=== PATIENT | male | born 1965 | race Caucasian/White ===

== ENCOUNTER 2016-10-27 21:36 | Emergency (ER) | payer BC ==
[2016-10-27] MEDS ORDERED: ASPIRIN 81 MG (BABY) CHEWABLE TABLET PO ONE (21:46)
[2016-10-27] MEDS ORDERED: NORMAL SALINE 10 ML SYRINGE FLUSH IVP PRN (21:46)
[2016-10-27] MEDS ORDERED: Sodium Chloride 0.9% 1,000 ML PRIMARY IV ONE (21:46)
[2016-10-27] MEDS: NITROGLYCERIN 0.4 MG SL TAB (BOTTLE OF 3) SL PRN ×3 (21:50→22:19)
[2016-10-27 22:15] LABS: CREATINE KINASE MB 2.07 NG/ML (0.00-5.00)
[2016-10-27 22:17] VITALS: TEMP 96.6
[2016-10-27 22:21] LABS: BASOPHILS # (AUTO) 0.11 10*3/UL; BASOPHILS % (AUTO) 1.2 % (0-1); EOSINOPHILS # (AUTO) 0.32 10*3/UL; EOSINOPHILS % (AUTO) 3.5 % (0-8); HEMATOCRIT 46.6 % (42.0-52.0); MEAN CORPUSCULAR HEMOGLOBIN 28.7 PG (27-31); MEAN CORPUSCULAR HGB CONC 34.3 g/dL (33-37); MEAN CORPUSCULAR VOLUME 83.5 FL (80-90); MONOCYTES # (AUTO) 0.72 10*3/UL (0.3-0.8); MONOCYTES % (AUTO) 7.8 % (5-15); NEUTROPHILS # (AUTO) 4.79 10*3/UL; NEUTROPHILS % (AUTO) 51.7 % (50-80); RED BLOOD COUNT 5.58 10^6/uL (4.70-6.10)
[2016-10-27 22:23] LABS: PLATELET MORPHOLOGY COMMENT NORMAL MORPHOLOGY (NORM); RBC MORPHOLOGY COMMENT NORMAL MORPHOLOGY (NORM); WBC MORPHOLOGY COMMENT NORMAL MORPHOLOGY (NORM)
[2016-10-27 22:26] LABS: TROPONIN I < 0.012 ng/mL (< 0.040)
[2016-10-27 22:31] LABS: BLOOD UREA NITROGEN 15 mg/dL (7-22); BUN/CREATININE RATIO 16.66 (6-20); CALCIUM 8.7 mg/dL (8.7-10.7); EST GLOMERULAR FILTRATION > 60 (>60 ml/min/1.73m(2)); SERUM ALBUMIN 4.1 g/dL (3.5-4.8)
[2016-10-27] MEDS ORDERED: MORPHINE SULFATE 4 MG/1 ML IVP ONE (22:33)
[2016-10-27] MEDS ORDERED: KETOROLAC 30 MG/1 ML VIAL IVP ONE (23:18)
[2016-10-27 23:30] VITALS: RESP 12
--- NOTE | 2016-10-28 06:16 | PDOC ---
Chest Pain HPI - General Chief Complaint: Chest Pain Stated Complaint: LEFT SIDED CHEST PAIN STARTED 2 HOURS AGO Date Seen by Provider: 10/27/16 Time Seen by Provider: 21:35 Source: Patient, Spouse Exam Limitations: POSITIVE: No limitations Treatment Prior to Arrival: REPORTS: None Nurse's Notes Reviewed & Considered: Yes - History of Present Illness Initial Comments: The patient is a 51 year old male. 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 He states he's never had any similar problems. He states that his pain is "sharp" and exacerbated/precipitated by deep inspiration and portion of torso. Patient has a history of hypertension for which he takes a medication. He has no known cardiopulmonary problems. He takes one baby aspirin daily. No dyspnea. No diaphoresis. No radiation of discomfort. Body Location Affected: REPORTS: Chest Timing: REPORTS: Abrupt Duration: 1-3 hours Severity: Moderate Persistent/Worse since (date): 10/27/16 Persistent/Worse since (time): 18:00 Context: REPORTS: Activity (Walking) Quality: REPORTS: "Pain", Sharpness, Stabbing Radiation: REPORTS: None Associated Symptoms: REPORTS: Hurts to Breathe. DENIES: Nausea, Vomiting, Diaphoresis, Shortness of Breath, Palpitations, Productive Cough (blood), Productive Cough (sputum), Weakness, Dizziness Modifying Factors: improves with: Movement Similar Symptoms Previously: No Recently seen/treated/hospitalized: No Any Prior Injuries Related to Current Complaint?: No - Patient Home Medications Home Medications: Home Medications Aspirin [Aspir 81] 81 mg PO PRN 10/27/16 - Patient Allergies Allergies/Adverse Reactions: Allergies Allergy/AdvReac Type Severity Reaction Status Date / Time No Known Allergies Allergy Unverified 10/27/16 21:53 Past Medical History - heen HEENT History: Denies History Cardiovascular History: Denies History Respiratory History: Denies History Gastrointestinal History: Denies History Genitourinary History: Denies History Endocrine History: Denies History Musculoskeletal History: Denies History Neurological History: Denies History Blood Disorders: Denies History Psychiatric History: Denies History Male Reproductive History: Denies History Cancer History: Denies History In Past Year Been Physically Harmed or Verbally Threatened: No History of MDRO: No Tobacco Use: Current Every Day Smoker Alcohol Use: Occasionally Substance Use Type: None Previous Surgical History: Yes Type / Date of Surgery: BACK SURGERY Significant Family History: No pertinent family hx Past Medical History Reviewed: Reviewed - No Changes ROS - Limitations ROS Limitations: No Limitations Constitution: REPORTS: Denies Symptoms Cardiovascular: REPORTS: Chest Pain Respiratory: REPORTS: Hurts To Breathe Neurological: REPORTS: Denies Neuro Symptoms Gastrointestinal: REPORTS: Denies GI Symptoms Endocrine: REPORTS: Denies Symptoms Musculoskeletal: REPORTS: Denies MS Symptoms Genitourinary: REPORTS: Denies Symptoms Eyes: REPORTS: Denies Symptoms ENT: REPORTS: Denies Symptoms Skin: REPORTS: Denies Skin Symptoms Lympathic: REPORTS: Denies Lympathic Symptoms Immunologic: POSITIVE: Denies Symptoms Psychiatric: POSITIVE: Denies Psych Symptoms Chest Pain PE - General Appearance General Appearance: REPORTS: Alert, Cooperative, No Acute Distress, No Evidence of Trauma - HEENT HEENT: POSITIVE: Head Inspection Nml, Eyes Inspection Nml, Ears Inspection Nml, Nose Inspection Nml, Oral/Dental Inspect. Nml, Pharynx Inspect. Nml, PERRL, EOMI - Neck Neck: REPORTS: Normal Inspection, No Carotid Bruit - Respiratory Respiratory: REPORTS: No Respiratory Distress, Breath Sounds Normal, Chest Non- Tender - Cardiovascular Cardiovascular: REPORTS: Regular Rate and Rhythm, Heart Sounds Normal, Equal Pulses, Strong Pulses, No Murmur, No Gallop, No Friction Rub, No JVD Peripheral Pulses: Radial (R): 2+, Radial (L): 2+ - Abdomen Abdomen: Soft: (All Quadrants), Normal Bowel Sounds: (All Quadrants), Denies Tenderness: (All Quadrants), No Splenomegaly: (All Quadrants), No Hepatomegaly: (All Quadrants), No Guarding: (All Quadrants), No Rebound: (All Quadrants), No Palpable Pulse: (All Quadrants), No Palpabale Mass: (All Quadrants), No Distention: (All Quadrants), No Rigidity: (All Quadrants) - Skin Skin: REPORTS: Intact, Normal For Race, Warm, Dry, No Rash - Extremities Extremity: Non-Tender: (All Extremities), Normal ROM: (All Extremities), Normal Inspection: (All Extremities) - Neurological / Psychological Neurological: 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, 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 As Tested, Motor Normal, Sensation Normal, 5, 6 Images - Complete Complete: 1 - Area of described discomfort Chest Pain Progress - Results Reviewed by me Xrays/CTs/US Reviewed by me: Yes Discussed with Radiologist: No Radiology Findings: Chest x-ray normal by my interpretation; radiologist interpretation pending Lab Results Reviewed: Yes Lab Results:: Laboratory Results 10/27/16 Range/Units 21:53 WBC 9.26 (4.8-10.8) 10^3/uL RBC 5.58 (4.70-6.10) 10^6/uL Hgb 16.0 (14.0-18.0) g/dL Hct 46.6 (42.0-52.0) % MCV 83.5 (80-90) FL MCH 28.7 (27-31) PG MCHC 34.3 (33-37) g/dL RDW Std Deviation 41.0 (39-50) fL RDW Coeff of Brooke 13.5 (11.5-14.5) % Plt Count 187 (140-350) 10*3/uL MPV 12.0 (7.4-12.2) FL Immature Gran % (Auto) 0.2 (0-5) % Neut % (Auto) 51.7 (50-80) % Lymph % (Auto) 35.6 (10-50) % Kerr % (Auto) 7.8 (5-15) % Eos % (Auto) 3.5 (0-8) % Baso % (Auto) 1.2 H (0-1) % Immature Gran # (Auto) 0.02 10*3/UL Neut # (Auto) 4.79 10*3/UL Lymph # (Auto) 3.30 10*3/uL Kerr # (Auto) 0.72 (0.3-0.8) 10*3/UL Eos # (Auto) 0.32 10*3/UL Baso # (Auto) 0.11 10*3/UL WBC Morphology Comment Normal morphology (NORM) Plt Morphology Comment Normal morphology (NORM) RBC Morph Comment Normal morphology (NORM) D-Dimer < 0.19 (0.00-0.59) mg/L Sodium 139 (135-145) meq/L Potassium 3.8 (3.8-5.2) meq/L Chloride 107 (98-112) meq/L Carbon Dioxide 23 (23-33) meq/L Anion Gap 9 (5-20) BUN 15 (7-22) mg/dL Creatinine 0.9 (0.70-1.50) mg/dL Estimated GFR > 60 (>60 ml/min/1.73m(2)) BUN/Creatinine Ratio 16.66 (6-20) Glucose 98 (78-110) mg/dL Calculated Osmolality 288.0 (267-292) mOsm/kg Calcium 8.7 (8.7-10.7) mg/dL Total Bilirubin 0.5 (0.3-1.2) mg/dL AST 21 (21-57) IU/L ALT 30 (21-72) IU/L Alkaline Phosphatase 50 (38-126) IU/L CK-MB (CK-2) 2.07 (0.00-5.00) NG/ML Troponin I < 0.012 (< 0.040) ng/mL Total Protein 6.9 (6.1-8.0) g/dL Albumin 4.1 (3.5-4.8) g/dL Globulin 2.9 (2.50-4.10) g/dL Albumin/Globulin Ratio 1.40 (1.3-2.0) mg/g EKG Interpreted/Reviewed By Me:: Yes (normal) EKG Interpretation:: POSITIVE: Normal Sinus Rhythm, Normal Rate, Normal Intervals, Normal [place], Normal QRS, Normal ST/T - Patient's Progress Pain Medication Addressed: POSITIVE: Yes (No change with nitroglycerin. Some improvement with Toradol, 30 mg IV) School/Work Release Addressed: POSITIVE: Not Applicable Re-Examine Time: 23:15 Re-Examine Comment: Patient condition essentially unchanged. It was recommended to patient that he be admitted for period of observation and further evaluation. Patient advised that I cannot completely rule out the possibility of atypical chest pain of cardiac etiology. Patient understands. Will follow up with his primary care provider. Recommended that he continue his antihypertensive and one baby aspirin daily. Status: POSITIVE: Unchanged, Re-Examined Quality Measure Initiative: CP/AMI: POSITIVE: EKG, ASA - Consult Counseled: POSITIVE: Patient, Family, RE: Lab Results, RE: Radiology Results, RE : DX, RE: Need for F/U Patient Care Time - Estimated PCT Patient Care Time (In Minutes): 50 Vital Signs - Recent Vital Signs Vital Signs: Vital Signs (Last 8 hours) Pulse Resp BP Pulse Ox 10/27/16 23:24 68 12 122/83 93 10/27/16 23:01 70 10 L 120/87 92 10/27/16 22:44 65 12 122/83 95 10/27/16 22:29 75 12 121/84 92 10/27/16 22:19 86 12 127/85 91 - VS Reviewed Vital Signs Reviewed: Yes Discharge Clinical Impression: Chest pain Discharge Disposition: Discharged to Home Condition: Good Patient Instructions Given at Discharge: Chest Pain (ED) Additional Instructions: I am not completely sure what the source of your chest pain is. Your electrocardiogram is normal, as is her chest x-ray, and all your blood tests, including a screening test for blood clots to the lung. It is likely that your chest pain is musculoskeletal, however, I cannot completely guarantee that your pain is not do to your heart. I offered and recommended that you stay for a period of observation and further evaluation to be on the safe side, the you declined. Please try Advil or Tylenol for your discomfort. Warm moist compresses to your chest wall. Return here anytime if condition worsens in any way. Follow-up with your primary care provider. Follow Up With: NONE,NONE [Primary Care Provider] - (Instructions as above. Follow-up with your primary care provider. Return here anytime if condition worsens in any way whatsoever.)
--- NOTE | 2016-10-29 09:11 | EKG ---
[address] [address] Measurements Intervals [place] Rate: 76 P: 35 IN: 187 QRS: -44 QRSD: 94 T: 31 QT: 377 QTc: 408 Interpretive Statements SINUS RHYTHM LEFT ANTERIOR FASICULAR BLOCK No previous ECG available for comparison Electronically Signed On 10-29-16 10:46:05 MDT by Nadeem Tolbert [id number]
--- NOTE | 2016-10-29 10:51 | DI ---
AP CHEST X-RAY, 10/27/2016 9:46 PM : Clinical History: Chest pain Previous Exam: None at this facility. There is no acute soft tissue or bony abnormality. Heart size is normal. Lungs are clear. Mediastinal structures are normal. There are no pulmonary nodules. Overlying EKG leads are seen. Reading: Normal chest x-ray.
== END 2016-10-27 23:45 | disposition home or self-care (01) ==
LOC: ER 21:36
DX: R07.9 Chest pain, unspecified (principal); I10 Essential (primary) hypertension; R07.1 Chest pain on breathing
CPT/HCPCS: 71010; 80053; 82553; 84484; 85025; 85379; 93005; 93010; 96374; 96375; 99284 ×2; J1885; J2270; J7030

== ENCOUNTER 2016-11-15 16:30 | Emergency (ER) | payer BC ==
--- NOTE | 2016-11-15 16:43 | PDOC ---
Back Pain / Injury HPI - General Chief Complaint: Neck / Back Complaint Stated Complaint: BACK PAIN WITH FALL LAST NIGHT/SPASMS Date Seen by Provider: 11/15/16 Time Seen by Provider: 16:43 - History of Present Illness Initial Comments: Mr. Gardner is a 51-year-old man coming in today with a 1 week of worsening back pain. He has a history of chronic back pain he said several surgeries for it. He normally only takes Advil for the pain gets bad. With past week and is getting a little bit worse. It chlorinated yesterday when he had a bad back spasm that brought him to the ground. He stretched out his left hand which went through a window which shattered. He denies any real pain to his hands other than some minor aching but he is still having. Bad spasms to the right lower back. He has no urinary retention or overflow incontinence he has no new numbness tingling or loss of strength to his lower legs. The pain in his back radiates down his right leg. He denies any new trauma directly to his back. - Patient Home Medications Home Medications: Home Medications Aspirin [Aspir 81] 81 mg PO PRN 10/27/16 Citrulline [Pure L-Citrulline] 1 tab PO QD cap 11/09/16 Omeprazole 1 cap PO QD cap 11/09/16 Valsartan [Diovan] 80 mg PO DAILY tab 11/09/16 Diazepam [Valium] 5 mg PO BID PRN #10 tab 11/15/16 Hydrocodone/Acetaminophen [[place] 5-325 Tablet] 1 tab PO Q4H PRN #16 tab - Patient Allergies Allergies/Adverse Reactions: Allergies Allergy/AdvReac Type Severity Reaction Status Date / Time No Known Allergies Allergy Verified 11/15/16 16:40 Past Medical History - heen HEENT History: Denies History Cardiovascular History: Denies History Respiratory History: Denies History Gastrointestinal History: Denies History Genitourinary History: Denies History Endocrine History: Denies History Musculoskeletal History: Denies History Neurological History: Denies History Blood Disorders: Denies History Psychiatric History: Denies History Cancer History: Denies History History of MDRO: No Alcohol Use: Occasionally Substance Use Type: None Previous Surgical History: Yes Type / Date of Surgery: BACK SURGERY Significant Family History: No pertinent family hx Past Medical History Reviewed: Reviewed - No Changes ROS - Limitations ROS Limitations: No Limitations Constitution: REPORTS: Denies Symptoms Cardiovascular: REPORTS: Denies Cardiac Symptoms Respiratory: REPORTS: Denies Resp Symptoms Neurological: REPORTS: Denies Neuro Symptoms Gastrointestinal: REPORTS: Denies GI Symptoms Endocrine: REPORTS: Denies Symptoms Musculoskeletal: REPORTS: Back Pain, Joint Pain Eyes: REPORTS: Denies Symptoms ENT: REPORTS: Denies Symptoms Lympathic: REPORTS: Denies Lympathic Symptoms Immunologic: POSITIVE: Denies Symptoms Back Physical Assessment - General Appearance General Appearance: REPORTS: Alert, Cooperative, No Acute Distress - HEENT HEENT: POSITIVE: Head Inspection Nml, Eyes Inspection Nml, Ears Inspection Nml, PERRL, EOMI - Pupil Size Pupil Size: 2 mm: Bilateral - Neck Neck: POSITIVE: Non Tender, Painless ROM - Respiratory / CVS Respiratory / CVS: POSITIVE: Chest Non Tender, No Ecchymosis, Breath Sounds Normal - Abdomen Abdomen: Soft: (All Quadrants), Normal Bowel Sounds: (All Quadrants), Denies Tenderness: (All Quadrants) - Back Back: REPORTS: Other (mild tenderness to right lower back, along the paraspinal muscles of L3-L5. 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 Xray of the hand was ok. We gave IM toradol and norflex, with minimal improvement. We then gave oral norco and valium, which relaxed out his back spasm very well. He was able to walk. We made recommendations for follow up and gave return precautions Patient Care Time - Estimated PCT Patient Care Time (In Minutes): 20 Vital Signs - Recent Vital Signs Vital Signs: Vital Signs (Last 8 hours) Temp Pulse Resp BP Pulse Ox 11/15/16 16:30 97.4 F 85 17 156/103 93 - VS Reviewed Vital Signs Reviewed: Yes Discharge Clinical Impression: Chronic back pain Condition: Stable Prescriptions / Orders: Hydrocodone/Acetaminophen [[place] 5-325 Tablet] 1 tab PO Q4H PRN #16 tab PRN Reason: Pain Diazepam [Valium] 5 mg PO BID PRN #10 tab PRN Reason: Spasms Patient Instructions Given at Discharge: Chronic Back Pain (ED) Additional Instructions: The providers listed below work in orthopedic clinics and would be a place to start to ask about physical therapy Follow Up With: FAIZA SON [Primary Care Provider] - ESTEE LAFLEUR [PHYSICIAN STRAP MACHINE OPERATOR AUTOMATIC] - PHONG TRAN [STAFF PHYSICIAN] - ROB MITCHELL [STAFF PHYSICIAN] -
[2016-11-15] MEDS ORDERED: DIPH,PERTUSS,TET(ADACEL) VAC/PF 0.5 ML (Tdap) IM ONE (16:51)
[2016-11-15] MEDS ORDERED: KETOROLAC 30 MG/1 ML VIAL IM ONE (16:51)
[2016-11-15 17:00] VITALS: RESP 17; TEMP 97.4
[2016-11-15] MEDS ORDERED: DIAZEPAM 5 MG TABLET PO ONE (18:11)
[2016-11-15] MEDS ORDERED: HYDROcodone-APAP 5 MG -325 MG TABLET PO ONE (18:11)
--- NOTE | 2016-11-15 19:05 | DI ---
LEFT HAND, 11/15/2016 4:51 PM: Clinical History: Mild trauma. Previous Exam: None at this facility. AP and lateral views are submitted. There is no acute soft tissue, osseous, or joint abnormality. No radiopaque foreign bodies are identified. There is evidence of an old ulnar styloid fracture. Reading: There is no fracture or dislocation or evidence of a radiopaque foreign body.
[2016-11-15] MEDS ORDERED: HYDROcodone-APAP 5 MG -325 MG TABLET PO SCH (20:15)
== END 2016-11-15 20:20 | disposition home or self-care (01) ==
LOC: ER 16:30
DX: M54.5 Low back pain (principal); S60.812A Abrasion of left wrist, initial encounter; S60.512A Abrasion of left hand, initial encounter; W18.39XA Other fall on same level, initial encounter
CPT/HCPCS: 73120; 90471; 96372; 99282; 99283; J1885; J2360

== ENCOUNTER → 2016-11-16 | Outpatient (CLI) | payer BC ==
--- NOTE | 2016-11-16 18:00 | DI ---
LUMBAR SPINE SERIES, 11/16/2016 2:28 PM: Clinical History: Low back pain. Previous Exam: None at this facility. 3 routine upright views are submitted. The vertebral bodies are of normal height and size. The patien t is status post anterior fusions at L4-5 and L5-S1 as well as posterior fusions. The anterior fusion at L5-S1 is performed from the anterior approach. Posterior fusions are accomplished with metallic s truts transfixed with pedicle screws between L4 and S1. The anterior fusions may not be solid. There is disc space narrowing at L3-4. The remaining pedicles are normal. Both SI joints are normal. Readin. Status post anterior and posterior fusions at L4-5 and L5-S1. The anterior fusions may not be maria esther id. 2. There is disc space narrowing at L3-4.
== END ==
LOC: MOB RAD 14:30
PROVIDERS: ATTEND Family Medicine
DX: M54.5 Low back pain (principal); Z98.1 Arthrodesis status; M48.06 Spinal stenosis, lumbar region; X50.1XXA Overexertion from prolonged static or awkward postures, initial encounter
CPT/HCPCS: 72100

== ENCOUNTER → 2016-11-26 | Outpatient (CLI) | payer BC ==
--- NOTE | 2016-11-27 09:39 | DI ---
CT LUMBAR SPINE SCAN, 11/26/2016 12:44 PM : Clinical History: Acute right-sided low back pain with right-sided sciatica. Previous Exam: None at this facility. Scans are obtained from the mid body of T-12 to S4. without IV contrast. Sagittal and coronal reform atted images are generated. Curved coronal reformatted images and axial reformatted images angled thr ough the disc spaces are also performed. The vertebral bodies are of normal height and size. The patient is status post anterior and posterior fusions at L4-5 and L5-S1 with a right hemilaminectomy at L4 and a partial laminectomy at L5. Job Placement Officer ior fusions are accomplished with metallic struts transfixed with pedicle screws between L4 and S1 an d bone grafts between L5 and S1. The L4-5 anterior fusion is performed with bone grafts and a cage an d this fusion appears solid. The L5-S1 anterior fusion is performed from the anterior approach with c ortical bone grafts and this fusion appears solid. There is moderate narrowing at L3-4 and L1-2 with a normal disc space height at L2-3. There are no fractures. Posterior alignment and the remaining ped icles and posterior elements are normal. The sacrum and SI joints are normal. The high resolution thin slices through the disc spaces show normal disc spaces at T12-L1 and L1-2. L 2-3 has a mild circumferentially bulging but not herniated disc without canal or neural foraminal rosario nosis. L3-4 has a more prominent circumferentially bulging but not herniated disc. There are also hyp ertrophic changes of the apophyseal joints and ligamentum flavum the cross-sectional area still is a the lower limits of normal. There is no neural foraminal stenosis. There is no canal or neural forami nal stenosis at L4-5 or at L5-S1. READIN. Status post right L4 hemilaminectomy and at L5 partial laminectomy with anterior and posterior fu sions at L4-5 and L5-S1. The fusions appear solid. There is no canal or neural foraminal stenosis at either level. 2. There are bulging but not herniated discs without canal or neural foraminal stenosis at L2-3 and L3-4. There are arthritic changes in the apophyseal joints bilaterally at L3-4. 3. The T12-L1 and L1-2 disc spaces are normal.
== END ==
LOC: CT 12:42
PROVIDERS: ATTEND Family Medicine
DX: M54.41 Lumbago with sciatica, right side (principal); M47.817 Spondylosis without myelopathy or radiculopathy, lumbosacral region; F17.200 Nicotine dependence, unspecified, uncomplicated
CPT/HCPCS: 72131